=== PATIENT | male | born 1955 | race Caucasian/White ===

== ENCOUNTER 2019-04-04 14:00 | Day surgery (SDC) | payer MEDICAID ==
[~2019-04-04] VITALS: Ht 185.4 cm; Wt 94.7 kg
[~2019-04-04 14:00] MED LIST: ASPI-1071 PO; FURO-150 PO; LOSA25TA96 PO; SPIR25TA PO
[2019-04-04] MEDS ORDERED: normal saline 1000ml 1,000 ML IV SCH ×2 (14:25→18:40)
[2019-04-04 14:30] VITALS: BP 137/83
[2019-04-04] MEDS ORDERED: ceFAZolin 2gm in dextrose, iso 100 ML IV ONE (14:30)
[2019-04-04] MEDS ORDERED: ASPI81TA52 PO (15:00)
[2019-04-04] MEDS ORDERED: SPIR25TA PO (15:00)
[2019-04-04] MEDS ORDERED: METO-395 PO (15:00)
[2019-04-04] MEDS ORDERED: ATOR10TA PO (15:00)
[2019-04-04] MEDS ORDERED: fentaNYL/PF 50MCG/1 ML 2ML syringe ONE (17:24)
[2019-04-04] MEDS ORDERED: midazolam 2 mg/2 ml injection ONE ×2 (17:24→17:47)
[2019-04-04] MEDS ORDERED: LIDOcaine 1% W/epiNEPHrine 1:100,000 20ml vial ONE (17:25)
[2019-04-04] MEDS ORDERED: ceFAZolin 1000mg inj ONE (17:25)
[2019-04-04 18:30] VITALS: BP 133/86
[2019-04-04] MEDS ORDERED: ceFAZolin 1GM/D5W- ADD-VANTAGE 50 ML IV ONE (18:38)
[2019-04-04] MEDS ORDERED: HYDROcodone/acetaminophen 5mg/325mg tablet PO PRN (18:40)
[2019-04-04] MEDS ORDERED: LORazepam 1 MG tablet PO PRN (18:40)
[2019-04-04] MEDS ORDERED: HYDROcodone/acetaminophen 10/325mg tab PO PRN (18:40)
[2019-04-04 18:45] VITALS: BP 134/82
[2019-04-04 19:00] VITALS: BP 134/82
[2019-04-04 19:15] VITALS: BP 120/84
== END 2019-04-04 19:30 | disposition home or self-care (01) ==
LOC: SSTAY O 14:00
PROVIDERS: ATTEND Internal Medicine Interventional Cardiology
DX: Z45.02 Encounter for adjustment and management of automatic implantable cardiac defibrillator (principal); I25.10 Atherosclerotic heart disease of native coronary artery without angina pectoris; I50.9 Heart failure, unspecified; Z79.82 Long term (current) use of aspirin; Z79.899 Other long term (current) drug therapy
CPT/HCPCS: 33262; 93005; 99152; 99153; C1722; J0690; J2250; J3010; J7030; 33228; C1785